=== PATIENT | male | born 1940 | race Caucasian/White ===

== ENCOUNTER 2017-02-04 16:16 | Emergency (ER) | payer MEDICARE, MEDICAID ==
[~2017-02-04] VITALS: Ht 162.6 cm; Wt 62.0 kg
[~2017-02-04 16:16] MED LIST: ASPI81 PO; BACL10TA PO; BENA20 PO; CALC-15 PO; DULO30CA2 PO; GABA-531 PO; INSLAN SQ; INSNOV SQ; METF500T4 PO; METO50 PO; NIFE60TA71 PO; PREG50 PO; TAMS0.4C32 PO; THIA100 PO; VITAD1000 PO; ZOLP10 PO
[2017-02-04 16:31] LABS: GLUCOSE,POINT OF CARE 202 MG/DL (70-110)
[2017-02-04 20:00] VITALS: BP 136/79
== END 2017-02-04 20:18 | disposition home or self-care (01) ==
LOC: EMS 16:17
DX: T83.098A Other mechanical complication of other urinary catheter, initial encounter (principal); E11.9 Type 2 diabetes mellitus without complications; I10 Essential (primary) hypertension; F17.210 Nicotine dependence, cigarettes, uncomplicated; Z87.440 Personal history of urinary (tract) infections; Z79.4 Long term (current) use of insulin
CPT/HCPCS: 82962; 99283

== ENCOUNTER 2017-09-24 23:58 | Emergency (ER) | payer MEDICARE, MEDICAID ==
[~2017-09-24] VITALS: Ht 167.6 cm; Wt 75.0 kg
[~2017-09-24 23:58] MED LIST changes: -ZOLP10 PO; +ZOLP10TA7 PO
[2017-09-25 00:02] VITALS: BP 162/78
== END 2017-09-25 01:11 | disposition left against medical advice (07) ==
LOC: EMS 23:59
DX: R07.9 Chest pain, unspecified (principal); E11.9 Type 2 diabetes mellitus without complications; I10 Essential (primary) hypertension; F17.210 Nicotine dependence, cigarettes, uncomplicated; Z53.21 Procedure and treatment not carried out due to patient leaving prior to being seen by health care provider
CPT/HCPCS: 93005

== ENCOUNTER 2017-09-25 07:34 | Emergency (ER) | payer MEDICARE, MEDICAID ==
[~2017-09-25] VITALS: Ht 170.2 cm; Wt 75.0 kg
[2017-09-25 07:36] VITALS: BP 152/72
[2017-09-25 07:52] LABS: GLUCOSE,POINT OF CARE 146 MG/DL (70-110)
== END 2017-09-25 08:13 | disposition left against medical advice (07) ==
LOC: EMS 07:36
DX: Z53.21 Procedure and treatment not carried out due to patient leaving prior to being seen by health care provider (principal); R73.9 Hyperglycemia, unspecified
CPT/HCPCS: 82962; 93005

== ENCOUNTER 2018-07-22 13:15 | Emergency (ER) | payer MEDICARE, MEDICAID ==
[~2018-07-22] VITALS: Ht 167.6 cm; Wt 63.6 kg
[~2018-07-22 13:15] MED LIST changes: +METF-960 PO; -METF500T4 PO; -THIA100 PO; +THIA100T67 PO
[2018-07-22 13:17] VITALS: BP 154/113
== END 2018-07-22 14:48 | disposition left against medical advice (07) ==
LOC: EMS 13:20
DX: T83.84XA Pain due to genitourinary prosthetic devices, implants and grafts, initial encounter (principal); E11.9 Type 2 diabetes mellitus without complications; I10 Essential (primary) hypertension; F17.210 Nicotine dependence, cigarettes, uncomplicated; Z53.21 Procedure and treatment not carried out due to patient leaving prior to being seen by health care provider

== ENCOUNTER 2018-10-10 23:10 | Emergency (ER) | payer MEDICARE, MEDICAID ==
[~2018-10-10] VITALS: Ht 162.6 cm; Wt 56.4 kg
[2018-10-10 23:57] LABS: APPEARANCE,URINE CLEAR (CLEAR); BILIRUBIN,URINE NEGATIVE (NEGATIVE); GLUCOSE, URINE (UA) >=1000 mg/dL (NEGATIVE); KETONES,URINE NEGATIVE (NEGATIVE); LEUKOCYTE ESTERASE ,URINE SMALL (NEGATIVE); NITRATE,URINE NEGATIVE (NEGATIVE); OCCULT BLOOD,URINE MODERATE (NEGATIVE); PH,URINE 6.5 (5.0-8.0); PROTEIN,URINE NEGATIVE (NEGATIVE); UROBILINOGEN,URINE 0.2 mg/dL (<=1.0)
[2018-10-11 00:08] LABS: BASOPHILS % (AUTO) 1.1 % (0.0-2.0); EOSINOPHILS % (AUTO) 1.6 % (1.0-6.0); HEMOGLOBIN 13.5 g/dL (13.5-17.5); LYMPHOCYTES # (AUTO) 1.9 K/uL (1.0-4.8); LYMPHOCYTES % (AUTO) 15.9 % (22.0-44.0); MEAN CORPUSCULAR HEMOGLOBIN 27.9 pg (26.0-34.0); MEAN CORPUSCULAR VOLUME 84 fL (80-100); MONOCYTES # (AUTO) 0.6 K/uL (0.1-1.0); MONOCYTES % (AUTO) 4.9 % (2.0-9.0); NEUTROPHILS % (AUTO) 76.5 % (40.0-70.0); PLATELET COUNT (AUTO) 357 K/uL (150-450); RED BLOOD CELL COUNT(AUTO) 4.86 MIL/uL (4.50-5.90)
[2018-10-11] MEDS ORDERED: SODIUM CHLORIDE 0.9% 1,000 ML IV ONE ×2 (00:15→01:45)
[2018-10-11 00:17] LABS: BACTERIA,URINE Moderate /HPF (None Seen); SQUAMOUS EPITHELIAL CELL,UR None Seen /LPF (None Seen)
[2018-10-11 00:24] LABS: ALBUMIN 3.3 g/dL (3.4-5.0); BILIRUBIN,TOTAL 0.2 mg/dL (0.1-1.0); CALCIUM, TOTAL 9.3 mg/dL (8.8-10.5); CREATININE 1.23 mg/dL (0.60-1.30); TOTAL PROTEIN, SERUM 7.7 g/dL (6.4-8.2)
[2018-10-11] MEDS ORDERED: CIPROFLOXACIN HCL 250 MG TABLET PO ONE (00:45)
[2018-10-11] MEDS ORDERED: INSULIN REGULAR, HUMAN 100 UNITS/ML IVP ONE (00:45)
[2018-10-11 01:32] VITALS: BP 128/62
[2018-10-11 01:38] LABS: GLUCOSE,POINT OF CARE 331 MG/DL (70-110)
== END 2018-10-11 03:19 | disposition home or self-care (01) ==
LOC: EMS 23:11
DX: T83.028A Displacement of other urinary catheter, initial encounter (principal); N39.0 Urinary tract infection, site not specified; E11.9 Type 2 diabetes mellitus without complications; I10 Essential (primary) hypertension; F17.210 Nicotine dependence, cigarettes, uncomplicated; Z79.4 Long term (current) use of insulin; Z79.82 Long term (current) use of aspirin; Z79.84 Long term (current) use of oral hypoglycemic drugs
CPT/HCPCS: 36415; 51702; 80053; 81001; 82962; 85025; 87077; 87086; 87186; 96374; 99284; J1815; J7030